=== PATIENT | female | born 1960 | race African-American/Black ===

== ENCOUNTER 2019-11-18 14:38 | Emergency (ER) | payer BC ==
--- OUTSIDE RECORDS SUMMARY | 2019-11-18 14:56 | XMS REPORT | Summary of Care ---
:1960 Author Organization [facility] Address [address] [place] [id number] Care Team Providers Name Role Phone Michelle Lund MD Primary Care Provider Reason for Visit Reason Comments Refill Request Encounter Details Date Type Department Care Team Description 09/06/2019 Refill [facility] and Michelle Ryan MD Refill Request Adult Primary Care- [address] [place] [address] [place] [address] , [address] [place] [address] Allergies No Known Allergiesdocumented as of this encounter (statuses as of 09/07/2019) Medications Medication Sig Dispensed Refills Start Date End Date Status mometasone 50 Use 1 [place] in 1 Bottle 5 09/29/2018 Active mcg/actuation nasal each nostril 2 sprayIndications: (two) times Acute bacterial daily. sinusitis, Allergic sinusitis benazepriL 20 mg Take 1 tablet 90 tablet 1 09/06/2019 Active tabletIndications: by mouth Essential daily. hypertension METOPROLOL TAKE 1 TABLET 90 tablet 1 09/07/2019 Acti ve SUCCINATE XL 50 mg BY MOUTH EVERY 24 hr DAY tabletIndications: Essential hypertension metoprolol Take 1 tablet 30 tablet 5 09/06/2019 09/07/2019 Dis continued succinate XL 50 mg by mouth 24 hr daily. tabletIndications: Essential hypertension documented as of this encounter (statuses as of 09/07/2019) Active Problems Problem Noted Date Abnormal TSH 09/06/2019 Obesity (BMI 30-39.9) 10/28/2018 Essential hypertension 07/28/2018 Prediabetes documented as of this encounter (statuses as of 09/07/2019) Resolved Problems Problem Noted Date Resolved Date Carpal tunnel syndrome 07/28/2018 07/28/2018 documented as of this encounter (statuses as of 09/07/2019) Immunizations Name Administration Dates Next Due Tdap 04/21/2013 documented as of this encounter Social History Tobacco Use Types Packs/Day Years Used Date Never Smoker Smokeless Tobacco: Never Used Alcohol Use Drinks/Week oz/Week Comments Yes Alcohol Habits Answer Date Recorded How often do you have a drink containing alcohol? 2-4 times a month 09/29/2018 How many drinks containing alcohol do you have on a 1 or 2 09/29/2018 typical day when you are drinking? How often do you have six or more drinks on one Never 09/29/2018 occasion? Sex Assigned at Date Recorded Not on file Job Start Date Occupation Industry Not on file Not on file Not on file Travel History Travel Start Travel End No recent travel history available. documented as of this encounter Last Filed Vital Signs Not on filedocumented in this encounter Plan of Treatment Date Type Specialty Care Team Description 10/29/2019 Office Visit Obstetrics & Gynecology Milena Davis PA-C [address] [place] [address] [phone] Health Maintenance Due Date Last Done Comments Zoster Recombinant Vaccine 2010 (SHINGRIX) (1 of 2) Breast Cancer Screening 07/21/2019 07/20/2018, (MAMMOGRAM) 08/19/2017 INFLUENZA VACCINE (Season 01/26/2020 Postpo natalio from 12/21/2019 Ended) (Refused) COLONOSCOPY 02/19/2021 02/19/2018 PAP SMEAR 10/28/2021 10/28/2018, 04/21/2016 DTaP,Tdap,and Td Vaccines (2 04/21/2023 04/21/2013 - Td) HEPATITIS C (HCV) SCREEN Completed 07/28/2018 PNEUMOCOCCAL 0-64 YEARS Aged Out No longe r eligible based COMBINED SERIES on patient's age to complete this to [facility] documented as of this encounter Results Not on filedocumented in this encounter Visit Diagnoses Diagnosis Essential hypertension Unspecified essential hypertension documented in this encounter Insurance Payer Benefit Plan Subscriber ID Effective Dates Phone Address Type / Group BCBS OF [facility] [id number] 2018-Jess [phone] [address] [place] [id number] [place] [address] documented as of this encounter
--- OUTSIDE RECORDS SUMMARY | 2019-11-18 14:56 | XMS REPORT | Summary of Care ---
:1960 Author Organization [facility] - [facility] Address [address] [place] [id number] Care Team Providers Name Role Phone Michelle Lund MD Primary Care Provider Reason for Visit Reason Comments Edema Auth/Cert Status Reason Specialty Diagnoses / Procedures Referred By C ontact Referred To Contact Phlebotomy Diagnoses Essential hypertension - Primary Adc Pob Lab Draw Procedures N-Term Urinalysis Thy Stim Hormone Professional [employer] [address] , [address] [place] [address] Fax: Encounter Details Date Type Department Care Team Description 09/06/2019 Telemedicine Visit [facility] [place], Essential hypertension (Primary Dx); Pediatric and Adult Michelle Altamirano MD Prediabetes; Primary Care- [facility] Obesity (BMI 30-39.9); Prince FERREIRA Routine adult health maintenance; [address], [place] Bilateral lo wer extremity edema , [address] [address] [place], [place] [phone] [address] Allergies No Known Allergiesdocumented as of this encounter (statuses as of 09/06/2019) Medications Medication Sig Dispensed Refills Start Date End Date Status mometasone 50 Use 1 [facility] 1 Bottle 5 09/29/2018 Act osiris mcg/actuation in each nasal nostril 2 sprayIndications: (two) times Acute bacterial daily. sinusitis, Allergic sinusitis metoprolol Take 1 30 tablet 5 09/06/2019 Active succinate XL 50 mg tablet by 24 hr mouth daily. tabletIndications: Essential hypertension benazepriL 20 mg Take 1 90 tablet 1 09/06/2019 Ac tive tabletIndications: tablet by Essential mouth daily. hypertension amlodipine-benazep Take 1 90 capsule 3 01/25/2019 Discontinued ril 5-20 mg per capsule by 0 (Si de effects) capsuleIndications mouth daily. : Essential hypertension documented as of this encounter (statuses as of 09/06/2019) Active Problems Problem Noted Date Obesity (BMI 30-39.9) 10/28/2018 Essential hypertension 07/28/2018 Prediabetes documented as of this encounter (statuses as of 09/06/2019) Resolved Problems Problem Noted Date Resolved Date Carpal tunnel syndrome 07/28/2018 07/28/2018 documented as of this encounter (statuses as of 09/06/2019) Immunizations Name Administration Dates Next Due Tdap [...] Signs Not on filedocumented in this encounter Patient Instructions Patient InstructionsKathy Saunders - 09/06/2019 10:15 AM CDT Patient Education Leg Swelling in Both Legs Swelling of the feet, ankles, and legs is called edema. It is caused by excess fluid that has collected in the tissues. Extra fluid in the body settles in the lowest part because of gravity. This is why the legs and feet are most affected. Some of the causes for edema include: Disease of the heart such as congestive heart failure Standing or sitting for long periods of time Infection of the feet or legs Blood pooling in the veins of your legs (venous insufficiency) when the veins have less elasticity Dilated veins in your lower leg (varicose veins) Stockings or other clothing that is tight on your legs. This will cause blood to pool in your legs because the clothing limits blood flow. Some medicines. These include some hormones such as control pills, some blood pressure medicines such as calcium channel blockers, steroids, and some antidepressants such as MAO inhibitors andtricyclics. Menstrual periods that cause you to retain fluids Many types of kidney disease Liver failureor cirrhosis . Some swelling is normal, but a sudden increase in leg swelling or weight gain can be asign of a dangerous complication of called eclampsia. Poor nutrition Thyroid disease Treatment will depend on what is causing the swelling in your legs. Your healthcare provider may prescribe water pills (diuretics) to get rid of the extra fluid. Home care Follow these guidelines when caring for yourself at home: Don't wear clothing such as stockings that are tight on your legs. Keep your legs up while lying or sitting. If infection, injury, or recent surgery is causing the swelling, stay off your legs as much as possible until symptoms get better. If your healthcare provider says that your leg swelling is caused by venous insufficiency or varicose veins, don't sit or information security risk analyst one place for long periods of time. Take breaks and walk about every few hours. Brisk walking is a good exercise. It helps circulate the blood that has collected in your leg. Talk with your provider about using support stockings to stop daytime leg swelling. If your provider says that heart disease is causing your leg swelling, follow a low-salt diet to stop extra fluid from staying in your body. You may also need medicine. Follow-up care Follow up with your healthcare provider, or as advised. When to seek medical advice Call your healthcare provider right away if any of these occur: Swelling in both legs or ankles that gets worse Swelling of the abdomen Redness, warmth, or swelling in one leg Fever of 100.4F (38C) or higher ,or as directed by your healthcare provider Yellow color to your skin or eyes Rapid, unexplained weight gain Having to sleep upright or use an increased number of pillow Call 911 This is the fastest and safest way to get to the emergency department. The paramedics can also starttreatment on the way to the hospital, if needed. Call 911, or seekmedical attention right away if You have new shortness of breath or chest pain Worsening shortness of breath or chest pain? Claudia last reviewed this educational content on 02/19/201919994290-7994 [employer], [employer]. [address] [place] [address], [place] [address]. All rights reserved. This information is not intended as a substitute for professional medical care. Always follow your healthcare professional's instructions. Patient Education Leg Swelling in Both Legs Swelling of the feet, ankles, and legs is called edema. It is caused by excess fluid that has collected in the tissues. Extra fluid in the body settles in the lowest part because of gravity. This is why the legs and feet are most affected. Some of the causes for edema include: Disease of the heart such as congestive heart failure Standing or sitting for long periods of time Infection of the feet or legs Blood pooling in the veins of your legs (venous insufficiency) when the veins have less elasticity Dilated veins in your lower leg (varicose veins) Stockings or other clothing that is tight on your legs. This will cause blood to pool in your legs because the clothing limits blood flow. Some medicines. These include some hormones such as control pills, some blood pressure medicines such as calcium channel blockers, steroids, and some antidepressants such as MAO inhibitors andtricyclics. Menstrual periods that cause you to retain fluids Many types of kidney disease Liver failureor cirrhosis . Some swelling is normal, but a sudden increase in leg swelling or weight gain can be asign of a dangerous complication of called eclampsia. Poor nutrition Thyroid disease Treatment will depend on what is causing the swelling in your legs. Your healthcare provider may prescribe water pills (diuretics) to get rid of the extra fluid. Home care Follow these guidelines when caring for yourself at home: Don't wear clothing such as stockings that are tight on your legs. Keep your legs up while lying or sitting. If infection, injury, or recent surgery is causing the swelling, stay off your legs as much as possible until symptoms get better. If your healthcare provider says that your leg swelling is caused by venous insufficiency or varicose veins, don't sit or information security risk analyst one place for long periods of time. Take breaks and walk about every few hours. Brisk walking is a good exercise. It helps circulate the blood that has collected in your leg. Talk with your provider about using support stockings to stop daytime leg swelling. If your provider says that heart disease is causing your leg swelling, follow a low-salt diet to stop extra fluid from staying in your body. You may also need medicine. Follow-up care Follow up with your healthcare provider, or as advised. When to seek medical advice Call your healthcare provider right away if any of these occur: Swelling in both legs or ankles that gets worse Swelling of the abdomen Redness, warmth, or swelling in one leg Fever of 100.4F (38C) or higher ,or as directed by your healthcare provider Yellow color to your skin or eyes Rapid, unexplained weight gain Having to sleep upright or use an increased number of pillow Call 911 This is the fastest and safest way to get to the emergency department. The paramedics can also starttreatment on the way to the hospital, if needed. Call 911, or seekmedical attention right away if You have new shortness of breath or chest pain Worsening shortness of breath or chest pain? [employer] last reviewed this educational content on 02/19/201919996769-2195 [employer] [address] [place] [address]. All rights reserved. This information is not intended as a substitute for professional medical care. Always follow your healthcare professional's instructions. documented in this encounter Progress Notes Michelle Lund MD - 09/06/2019 10:15 AM CDT TELEHEALTH NOTE Verbal consent obtained from Patient: Radha Maza due to the COVID-19 pandemic for telehealth services provided below. Communication with patient was conducted via Video Call. Location of Patient: Home Location of Provider: Office Date of Service: 09/06/2019 CC: Chief Complaint Patient presents with Edema HPI Radha Maza is a 59 year old female who participated in a Telehealth visit today for edema and for f/u of HTN, prediabetes, and obesity. Edema or swelling: Location: Bilateral lower extremity edema. Duration: About 4 months. Onset: Gradual-onset. Timing: Constant. Progression: Unchanged. Relieved by: Elevations helps minimally. Worsened by: Prolonged sitting. Ineffective treatments: Compression stockings. Associated symptoms: None. Pertinent negatives: Denies SOB, orthopnea, or PND. Risk factors: Obesity, HTN, takes a CCB (amlodipine). Past work-up: None. HTN follow-up: Medication compliance: Good. Dietary compliance: Improving the past few weeks. Exercise frequency: She exercises occasionally. Blood pressure readings: <130/<80. Associated symptoms: None. Denies cp or SOB. Cardiovascular screening (ex. EKG, stress test) in the past 3 years?: Yes. Prediabetes follow-up: Last Two A1C Results ([facility]/LC, POCT, [facility]) Recent Labs 01/25/19 0831 HGBA1C 5.9 On metformin?: No. Dietary compliance: See above. Exercise frequency: See above. Associated symptoms: None. Denies polyuria, polydipsia, blurred vision, or numbness/tingling of extremities. No Known Allergies Current Outpatient Medications on File Prior to Visit Medication Sig Dispense Refill mometasone 50 mcg/actuation nasal spray Use 1 [facility] in each nostril 2 (two) times daily. 1 Bottle 5 No current facility-administered medications on file prior to visit. Past Medical History: Diagnosis Date Allergic rhinitis Essential hypertension 07/28/2018 History of sinusitis Prediabetes Past Surgical History: Procedure Laterality Date COLONOSCOPY 02/2018 Dr. Ulloa, + polyps, f/u in 3 years ENDOSCOPIC CARPAL TUNNEL RELEASE ENDOSCOPIC CARPAL TUNNEL RELEASE TUBAL LIGATION Family History Problem Relation Age of Onset Hypertension Mother Colon Cancer Mother 60 High cholesterol Father Hypertension Father Hypertension Sister Hypertension Brother Psychiatry Brother Colon Cancer Maternal Grandmother 60 Psychiatry Brother Hypertension Brother Hypertension Sister Social History Socioeconomic History Marital status: Spouse name: Not on file Number of children: Not on file Years of education: Not on file Highest education level: Not on file Occupational History Not on file Social Needs Financial resource strain: Not on file Food insecurity: Worry: Not on file Inability: Not on file Transportation needs: Medical: Not on file Non-medical: Not on file Tobacco Use Smoking status: Never Smoker Smokeless tobacco: Never Used Substance and Sexual Activity Alcohol use: Yes Frequency: 2-4 times a month Drinks per session: 1 or 2 Binge frequency: Never Drug use: No Sexual activity: Yes Partners: Male Lifestyle Physical activity: Days per week: Not on file Minutes per session: Not on file Stress: Not on file Relationships Social connections: Talks on phone: Not on file Gets together: Not on file Attends baptist service: Not on file Active member of club or organization: Not on file Attends meetings of clubs or organizations: Not on file Relationship status: Not on file Intimate partner violence: Fear of current or ex partner: Not on file Emotionally abused: Not on file Physically abused: Not on file Forced sexual activity: Not on file Other Topics Concern Not on file Social History Narrative Single. 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 Denies domestic abuse. Review of Systems Constitutional: Negative. HENT: Negative. Eyes: Negative. Respiratory: Negative. Cardiovascular: Positive for leg swelling. Gastrointestinal: Negative. Genitourinary: Negative. Musculoskeletal: Negative. Skin: Negative. Neurological: Negative. Psychiatric/Behavioral: Negative. Endocrine: Endocrine negative Vital signs Level of pain 0. Physical Exam Constitutional: She is oriented to person, place, and time. She appears well- developed and well-nourished. No distress. Pulmonary/Chest: Effort normal. No stridor. No respiratory distress. No audible adventitious breath sounds Neurological: She is alert and oriented to person, place, and time. Skin: No rash noted. No pallor. Psychiatric: She has a normal mood and affect. Her speech is normal and behavior is normal. Judgmentand thought content normal. Cognition and memory are normal. LABS: CBC CMP WBC (10*3/L) Date Value 01/25/2019 4.63 NA (mmol/L) Date Value 01/25/2019 144 RBC (10*6/L) Date Value 01/25/2019 4.58 K (mmol/L) Date Value 01/25/2019 4.8 PLT (10*3/L) Date Value 01/25/2019 345 CALCIUM (mg/dL) Date Value 01/25/2019 9.7 HGB (g/dL) Date Value 01/25/2019 12.8 CL (mmol/L) Date Value 01/25/2019 108 HCT (%) Date Value 01/25/2019 39.6 BUN (mg/dL) Date Value 01/25/2019 17 LIPID PANEL CREATININE (mg/dL) Date Value 01/25/2019 0.84 CHOL (mg/dL) Date Value 07/28/2018 138 GLUCOSE (mg/dL) Date Value 01/25/2019 96 LDL CHOL (mg/dL) Date Value 07/28/2018 73 CO2 TOTAL (mmol/L) Date Value 01/25/2019 29 HDL (mg/dL) Date Value 07/28/2018 56 ALBUMIN Date Value Ref Range Status 01/25/2019 4.2 3.5 - 5.0 g/dL Final TRIG (mg/dL) Date Value 07/28/2018 46 T PROTEIN Date Value Ref Range Status 01/25/2019 7.4 6.3 - 8.2 g/dL Final TSH TOTAL BILI Date Value Ref Range Status 01/25/2019 0.4 0.1 - 1.1 mg/dL Final TSH (mIU/L) Date Value 07/28/2018 0.50 No components found for: BILIUNCOM No results found for: BILICONJ ALT(SGPT) Date Value Ref Range Status 01/25/2019 25 9 - 51 U/L Final AST(SGOT) Date Value Ref Range Status 01/25/2019 27 13 - 40 U/L Final ALK PHOS Date Value Ref Range Status 01/25/2019 106 34 - 122 U/L Final ASSESSMENT/PLAN Diagnoses and all orders for this visit: Essential hypertension I will discontinue the amlodipine component of her medication given it is the likely reason for her edema. I prescribed benazepril and metoprolol as noted. A low sodium diet/DASH diet was recommended. She should also exercise regularly. The patient was instructed to self monitor her blood pressureonce daily varying the times when it is checked and to bring the record of readings to each office visit. The patient should follow-up sooner if the blood pressure is trending >/=130/80. Labs as noted below. - metoprolol succinate XL 50 mg 24 hr tablet; Take 1 tablet by mouth daily. - benazepriL 20 mg tablet; Take 1 tablet by mouth daily. Prediabetes Carb-controlled diet. Exercise regularly and work on weight loss. Consider self glucose monitoring. Consider metformin to help prevent progression to overt diabetes. Labs as noted below including an A1c. Obesity (BMI 30-39.9) Nutritional/Exercise Counseling and Education: - Counseled on diet, exercise, weight control and goals - Follow-Up plan: -Follow up visit for weight management at next clinic visit Routine adult health maintenance (annual routine labs) - CBC WITH DIFF; Standing - COMP. METABOLIC PANEL (99870); Standing - GLYCOSYLATED HEMOGLOBIN (A1C); Standing - LIPID PANEL (61390)(TOTAL CHOLESTEROL, TRIGLYCERIDES, HDL); Standing - THYROID STIMULATING HORMONE; Standing - URINALYSIS; Standing Bilateral lower extremity edema The patient was counseled to elevate the legs whenever possible, get enough hours of recumbent sleep, follow a low sodium diet, and consider compression hose. Check labs as noted above and a BNP checkis warranted. Venous duplex of the lower extremities can be considered along with a Vascular surgery consultation if her symptoms persist. - N-TERMINAL PRO-BNP; Standing Plan of care, desired health behaviors, goals, Ddx, and any prescribed medications were discussed with the patient. Education resources and self- management tools were provided in the After Visit Summary (AVS) which is accessible through [employer]. A total of 25 minutes was spent on the Video Call, chart review, and coordination of care with specialists. Patient/guardian/family verbalized understanding and agrees to the plan of care. Barriers to care: None. Ability to manage care: Good. Advanced care planning (living will) information was not given/offered to the patient to review for discussion at a future visit. If applicable, the [employer] database was accessed to review any controlled substance prescription claims data. If the patient is taking prescribed medications, the [facility] prescription claims data in [employer] was reviewed to assess patient compliance with the medication treatment plan. COVID-19 precautions given including frequent handwashing, social distancing, cleaning and disinfecting, indications for testing, etc. Follow-up: Return in about 6 months (around 03/08/2020) for routine follow-up of HTN, prediabetes, and obesity. Return for routine care as scheduled or previously advised. Scribe Kathy Machado , leida scribing for, and in the presence of, Michelle Lund MD who performed the services described here-in. Kathy Saunders, September 06, 2019, 8:56 AM Physician Attestation I, Michelle Lund MD, personally performed the services described in this documentation , as scribed by, Kathy Saunders in my presence and it is both accurate and complete. Michelle Lund MD September 06, 2019, 8:56 AM documented in this encounter Plan of Treatment Date Type Specialty Care Team Description 10/29/2019 Office Visit Obstetrics & Gynecology Milena Davis PA-C [address] [phone] Name Type Priority Associated Diagnoses Order S chedule CBC WITH DIFF LAB Routine Routine adult health 1 Occu rrences starting maintenance 09/06/2019 unti l 03/08/2020 COMP. METABOLIC PANEL LAB Routine Routine adult healt h 1 Occurrences starting (49100) maintenance 09/06/2019 unti l 03/08/2020 GLYCOSYLATED HEMOGLOBIN LAB Routine Routine adult hea lth 1 Occurrences starting (A1C) maintenance 09/06/2019 unti l 03/08/2020 LIPID PANEL (79440)(TOTAL LAB Routine Routine adult h ealth 1 Occurrences starting CHOLESTEROL, maintenance 09/06/2019 unti l TRIGLYCERIDES, HDL) 03/08/20 20 THYROID STIMULATING LAB Routine Routine adult health 1 Occurrences starting HORMONE maintenance 09/06/2019 unti l 03/08/2020 URINALYSIS LAB Routine Routine adult health 1 Occur rences starting maintenance 09/06/2019 unti l 03/08/2020 N-TERMINAL PRO-BNP LAB Routine Essential hyp ertension 1 Occurrences starting Bilateral lower 09/06/2019 u ntil extremity edema 03/08/2020 Health Maintenance Due Date Last Done Comments [...] on patient's age to complete this to pic documented as of this encounter Results Not on filedocumented in this encounter Visit Diagnoses Diagnosis Essential hypertension - Primary Unspecified essential hypertension Prediabetes Other abnormal glucose Obesity (BMI 30-39.9) Obesity, unspecified Routine adult health maintenance Routine general medical examination at a health care facility Bilateral lower extremity edema Edema documented in this encounter Insurance Payer Benefit Plan Subscriber ID Effective Dates Phone Address Type / Group [facility] OF [facility] [id number] 2018-Jess [phone] [address] PPO/POS [place] t [id number] [place] [address] documented as of this encounter
--- OUTSIDE RECORDS SUMMARY | 2019-11-18 14:56 | XMS REPORT | Summary of Care ---
:1960 Author Organization [facility] - [facility] Address [address] [place] [address] Care Team Providers Name Role Phone Michelle Lund MD Primary Care Provider Encounter Details Date Type Department Care Team Description 10/29/2019 Patient Secure [facility] Pediatric Chacha Lund, and Adult Primary Care- [address] [place] [address], [address] [address] [place] [address] [phone] Allergies No Known Allergiesdocumented as of this encounter (statuses as of 10/29/2019) Medications Medication Sig Dispensed Refills Start Date End Date Status mometasone 50 Use 1 [place] in 1 Bottle 5 09/29/2018 Active mcg/actuation nasal each nostril 2 sprayIndications: (two) times daily. Acute bacterial sinusitis, Allergic sinusitis amLODIPine-benazepriL Take 1 capsule by 0 Active 5-40 mg per capsule mouth daily. documented as of this encounter (statuses as of 10/29/2019) Active Problems Problem Noted Date Abnormal TSH 09/06/2019 Obesity (BMI 30-39.9) 10/28/2018 Essential hypertension 07/28/2018 Prediabetes documented as of this encounter (statuses as of 10/29/2019) Resolved Problems Problem Noted Date Resolved Date Carpal tunnel syndrome 07/28/2018 07/28/2018 documented as of this encounter (statuses as of 10/29/2019) Immunizations Name Administration Dates Next Due TDAP 04/21/2013 documented as of this encounter Social [...] Treatment Date Type Specialty Care Team Description 11/30/2019 Office Visit Obstetrics & Gynecology Milena Davis PA-C [address] [place] [phone] Health Maintenance Due Date Last Done Comments Depression Screening 1972 Zoster Recombinant Vaccine 2010 (SHINGRIX) (1 of 2) Breast Cancer Screening 07/21/2019 07/20/2018, (MAMMOGRAM) 08/19/2017 INFLUENZA VACCINE (#1) 2020 Postponed from 12/21/2019 (Refused) COLONOSCOPY 02/19/2021 02/19/2018 PAP SMEAR 10/28/2021 10/28/2018, 04/21/2016 DTaP,Tdap,and Td Vaccines (2 04/21/2023 04/21/2013 - Td) HEPATITIS C (HCV) SCREEN Completed 07/28/2018 PNEUMOCOCCAL 0-64 YEARS Aged Out No longe r eligible based COMBINED SERIES on patient's age to complete this to pic documented as of this encounter Results Not on filedocumented in this encounter Insurance Payer Benefit Plan Subscriber ID Effective Dates Phone Address Type / Group [employer] [place] [id number] 2018-Jess [phone] [address] PPO/POS [place] t [id number] [place] [address] documented as of this encounter
--- OUTSIDE RECORDS SUMMARY | 2019-11-18 14:56 | XMS REPORT | Summary of Care ---
:1960 Author Organization [facility] Address [address] [place] [address] Care Team Providers Name Role Phone Michelle Lund MD Primary Care Provider Reason for Visit Reason Comments Exposure dizziness, fatigue, and head ache Encounter Details Date Type Department Care Team Description 11/18/2019 Laboratory Only [facility] Family Kacey Merino, DRYWALL HANGER FRAMER [address] [place] [address] [address] Suspected Covid-19 [facility], Adc Fam Pob I Virus Infection [address] [place] [address] (Primary D x) [place] [address] Allergies No Known Allergiesdocumented as of this encounter (statuses as of 11/18/2019) Medications Medication Sig Dispensed Refills Start Date End Date Status mometasone 50 Use 1 [place] in 1 Bottle 5 09/29/2018 Active mcg/actuation nasal each nostril 2 sprayIndications: (two) times daily. Acute bacterial sinusitis, Allergic sinusitis amLODIPine-benazepriL Take 1 capsule by 0 Active 5-40 mg per capsule mouth daily. documented as of this encounter (statuses as of 11/18/2019) Active Problems Problem Noted Date Abnormal TSH 09/06/2019 Obesity (BMI 30-39.9) 10/28/2018 Essential hypertension 07/28/2018 Prediabetes documented as of this encounter (statuses as of 11/18/2019) Resolved Problems Problem Noted Date Resolved Date Carpal tunnel syndrome 07/28/2018 07/28/2018 documented as of this encounter (statuses as of 11/18/2019) Immunizations Name Administration Dates Next Due TDAP [...] Travel End No recent travel history available. COVID-19 Exposure Response Date Recorded In the last month, have you been in contact with No / Unsure 11/18/2019 11:46 AM CDT someone who was confirmed or suspected to have Coronavirus / COVID-19? documented as of this encounter Last Filed Vital Signs Not on filedocumented in this encounter Plan of Treatment Date Type Specialty Care Team Description 12/29/2019 Office Visit Obstetrics & Gynecology Milena Davis PA-C [address] [place] [address] [phone] Name Type Priority Associated Diagnoses Order S chedule COVID-19 (PCR MOLECULAR LAB Routine Suspected Covid-1 9 Virus Expected: 11/18/2019, TESTING) Infection Expires: 2020 Health Maintenance Due Date Last Done Comments [...] filedocumented in this encounter Visit Diagnoses Diagnosis Suspected Covid-19 Virus Infection - Malia de la torre documented in this encounter Additional Health Concerns Infection Onset Date Last Indicated Resolved Time COVID-19 Rule Out 11/18/2019 11/18/2019 documented as of this encounter Insurance Payer Benefit Plan Subscriber ID Effective Dates Phone Address Type / Group BCBS OF [facility] [id number] 2018-Jess [phone] [address] PPO/POS [place] t 7 [id number] [place] [address] documented as of this encounter
--- OUTSIDE RECORDS SUMMARY | 2019-11-18 14:56 | XMS REPORT | Summary of Care ---
:1960 Author Organization [facility] Address [address] [place] [address] Care Team Providers Name Role Phone Michelle Lund MD Primary Care Provider Encounter Details Date Type Department Care Team Description 10/20/2019 Patient Secure [facility] Pediatric Chacha Lund, and Adult Primary Care- [address] [place], [place] [address], [address] [address] [place] [address] [phone] Allergies No Known Allergiesdocumented as of this encounter (statuses as of 10/21/2019) Medications Medication Sig Dispensed Refills Start Date End Date Status mometasone 50 Use 1 [place] 1 Bottle 5 09/29/2018 Act osiris mcg/actuation in each nasal nostril 2 sprayIndications: (two) times Acute bacterial daily. sinusitis, Allergic sinusitis amLODIPine-benazep Take 1 0 A ctive riL 5-40 mg per capsule by capsule mouth daily. benazepriL 20 mg Take 1 tablet 90 tablet 1 09/06/2019 10/21/19 2 Discontinued tabletIndications: by mouth 0 ( Side effects) Essential daily. hypertension METOPROLOL TAKE 1 TABLET 90 tablet 1 09/07/2019 Disc ontinued SUCCINATE XL 50 mg BY MOUTH 0 ( Side effects) 24 hr EVERY DAY tabletIndications: Essential hypertension documented as of this encounter (statuses as of 10/21/2019) Active Problems Problem Noted Date Abnormal TSH 09/06/2019 Obesity (BMI 30-39.9) 10/28/2018 Essential hypertension 07/28/2018 Prediabetes documented as of this encounter (statuses as of 10/21/2019) Resolved Problems Problem Noted Date Resolved Date Carpal tunnel syndrome 07/28/2018 07/28/2018 documented as of this encounter (statuses as of 10/21/2019) Immunizations Name Administration Dates Next Due TDAP [...] Visit Obstetrics & Gynecology Milena Davis PA-C [address] [place] [address] [phone] Health Maintenance Due Date Last Done [...] Type / Group BCBS OF [employer] [id number] 2018-Jess [phone] [address] PPO/POS [place] t 7 [id number] [place] [address] documented as of this encounter
--- OUTSIDE RECORDS SUMMARY | 2019-11-18 14:56 | XMS REPORT | Continuity of Care Document ---
:1960 Author Organization [facility] t Address [address] [place] [address] Care Team Providers Name Role Phone Lab, Fam Pob I Attending Clinician Unavailable 2, Lab Attending Clinician Unavailable Kevon ALVAREZ, Evelia Attending Clinician Pob, Lab Main Attending Clinician Unavailable Problems Condition Condition Condition Status Onset Resolution Last Treating Co mments Source Name Details Category Date Date Treatment Clinician Date Hypertensi Hypertensi Problem Active [facility] Prediabete Prediabete Problem Active C [facility] s [facility] History of History of Problem Active C HI St thrombocyt thrombocyt Yelena kes - osis osis [facility] Hematuria, Hematuria, Problem Active C HI St unspecifie unspecifie Yelena kes - d type d type [facility] Encounter Encounter Diagnosis Active C HI St for for [facility] - screening screening [place] mammogram mammogram l for for [facility] malignant malignant ent neoplasm neoplasm Clinic s of breast of breast Allergies, Adverse Reactions, Alerts This patient has no known allergies or adverse reactions. Medications Ordered Filled Start Stop Current Ordering Indication Dosage Frequency Signature Comments Components Source Medication Medication Date Date Medication? Clinician (SIG) Name Name Vitamin D Vitamin D Yes Rosanna [address] [facility] Vitamin C Vitamin C Yes Rosanna not [facility] defined [facility] Evening Evening Yes Rosanna not [facility] defined [facility] Oil Oil [facility] Clinics Amlodipine Amlodipine Yes Rosanna [address] [facility] Mill[facility] - pril HCl pril HCl [facility] Procedures This patient has no known procedures. Encounters Start End Encounter Admission Attending Care Care Encounter Source Date/Time Date/Time Type Type Clinicians Facility Department ID 2019-11-18 2019-11-18 Laboratory Lab, [facility] [id number] 11:45:26 12:05:26 Only Fam Tommie [facility] [id number] [place] [id number] Professio [phone] [place] [address] Office Building One 2019-11-02 2019-11-02 Driller Operator 2, [facility] Lab [facility] [id number] 09:49:38 10:04:38 Visit [place] [id number] [place] [id number] Professio [phone] [address] 2019-10-29 2019-10-29 Patient Kevon, [facility] [id number] 00:00:00 00:00:00 Secure Msg Wondiful A [place] [id number] [place] [id number] Professio [phone] [address] 2019-10-20 2019-10-20 Patient Kevon [facility] [id number] 00:00:00 00:00:00 Secure Msg Wondiful A [place] [id number] [place] [id number] Professio [phone] [address] 2019-09-06 2019-09-06 Driller Operator Tommie, [facility] [id number] 13:05:19 13:20:19 Visit Lab Main [place] [id number] [place] [id number] Professio [phone] [address] 2019-09-06 2019-09-06 Case Kevon [facility] [id number] 00:00:00 00:00:00 Management Wondiful A [place] [id number] [place] [id number] Professio [phone] n[address] [place] [address] 2019-09-06 2019-09-06 VINICIUS Najera [id number] 00:00:00 00:00:00 Michelle Morrison [id number] [place] [id number] Professio [phone] [address] 2018-07-13 2018-07-13 [facility] [id number] 13:23:00 13:23:00 [facility] Medicine Outpati ent Clinics 2017-08-22 2017-08-22 [facility] [id number] 08:30:00 08:30:00 [facility] Medicine Outpati ent Clinics 2017-08-05 2017-08-05 [facility] [id number] 15:15:00 15:15:00 [facility] Medicine Outpati ent Clinics 2017-07-31 2017-07-31 [facility] [id number] 11:31:00 11:31:00 [facility] Outpati ent Clinics 2017-07-24 2017-07-24 [facility] [id number] 09:30:00 09:30:00 [facility] Results This patient has no known results.
--- OUTSIDE RECORDS SUMMARY | 2019-11-18 14:56 | XMS REPORT | Summary of Care ---
:1960 Author Organization [facility] Address [address] [place] [address] Care Team Providers Name Role Phone Michelle Lund MD Primary Care Provider Reason for Visit Reason Comments Orders f/u thyroid labs Encounter Details Date Type Department Care Team Description 09/06/2019 Case Management [facility] Michelle Lund Orders (f/u thyroid Pediatric and Adult MD Evelia labs) Primary Care- [address] [place] [address] , [address] [address] [place] [address] Allergies No Known Allergiesdocumented as of this encounter (statuses as of 09/06/2019) Medications Medication Sig Dispensed Refills Start Date End Date Status mometasone 50 Use 1 [place] in 1 Bottle 5 09/29/2018 Active mcg/actuation nasal each nostril 2 sprayIndications: Acute (two) times bacterial sinusitis, daily. Allergic sinusitis metoprolol succinate XL Take 1 tablet by 30 tablet 5 0 Active 50 mg 24 hr mouth daily. tabletIndications: Essential hypertension benazepriL 20 mg Take 1 tablet by 90 tablet 1 09/06/2019 Active tabletIndications: mouth daily. Essential hypertension documented as of this encounter (statuses as of 09/06/2019) Active Problems Problem Noted Date Abnormal TSH [...] Visit Obstetrics & Gynecology Milena Davis PA-C [address] [place] [address] 15-4112 Name Type Priority Associated Diagnoses Order S chedule THYROID STIMULATING HORMONE LAB Routine Abno rmal TSH Expected: 10/07/2019, Abnormal thyroid Expires: function test FREE T4 LAB Routine Abnormal TSH Expected: 10/07/2019, Abnormal thyroid Expires: function test FREE T3 LAB Routine Abnormal TSH Expected: 10/07/2019, Abnormal thyroid Expires: function test THYROGLOBULIN AB LAB Routine Abnormal TSH Expected: 10/07/2019, Abnormal thyroid Expires: function test THYROID PEROXIDASE (TPO) LAB Routine Abnorma l TSH Expected: 10/07/2019, AB Abnormal thyroid Expires: function test TSH RECEPTOR ANTIBODY LAB Routine Abnormal T SH Expected: 10/07/2019, (TRAB) Abnormal thyroid Expires: function test Health Maintenance Due Date Last Done Comments [...] on patient's age to complete this to [facility] documented as of this encounter Results Not on filedocumented in this encounter Visit Diagnoses Diagnosis Abnormal TSH - Primary Other abnormal clinical finding Abnormal thyroid function test Nonspecific abnormal results of thyroid function study documented in this encounter Insurance Payer Benefit Plan Subscriber ID Effective Dates Phone Address Type / Group BCBS OF [facility] [id number] 2018-Jess [phone] [address] PPO/POS [place] t 7 [id number] [place] [address] documented as of this encounter
--- OUTSIDE RECORDS SUMMARY | 2019-11-18 14:56 | XMS REPORT | Summary of Care ---
:1960 Author Organization [facility] Address [address] [place] [address] Care Team Providers Name Role Phone Michelle Lund MD Primary Care Provider Reason for Visit Reason Comments LAB WORK Auth/Cert Status Reason Specialty Diagnoses / Procedures Referred By C ontact Referred To Contact Phlebotomy Diagnoses Essential hypertension - Primary Adc Pob Lab Draw Procedures N-Term Urinalysis Thy Stim Hormone Professional Office [address] , [address] [place] [address] Fax: Encounter Details Date Type Department Care Team Description 09/06/2019 In Flight Refueling Operator Visit [facility] Kirt Lund MD [address] [place] [address] [place] [address] Routine adult health maintenance; Professional Office Pob, Adc Lab Main Essential hypertension; Building Phlebotomy Bilatera l lower extremity edema Lab Professional Office [address] , [address] [place] [address] Allergies No Known Allergiesdocumented as of this encounter (statuses as of 09/06/2019) Medications Medication Sig Dispensed Refills Start Date End Date Status mometasone 50 Use 1 [place] in 1 Bottle 5 09/29/2018 Active mcg/actuation [...] Visit Obstetrics & Gynecology Milena Davis PA-C [address] [place] [address] 15-4112 Name Type Priority Associated Diagnoses Date/Ti me CBC WITH DIFF LAB Routine Routine adult health 2019 1:22 PM maintenance CDT COMP. METABOLIC PANEL LAB Routine Routine adult healt h 09/06/2019 1:22 PM (65242) maintenance CDT GLYCOSYLATED HEMOGLOBIN LAB Routine Routine adult hea lth 09/06/2019 1:22 PM (A1C) maintenance CDT LIPID PANEL (39221)(TOTAL LAB Routine Routine adult h ealth 09/06/2019 1:22 PM CHOLESTEROL, maintenance CDT TRIGLYCERIDES, HDL) THYROID STIMULATING LAB Routine Routine adult health 09/06/2019 1:22 PM HORMONE maintenance CDT URINALYSIS LAB Routine Routine adult health 020 1:33 PM maintenance CDT N-TERMINAL PRO-BNP LAB Routine Essential hyp ertension 09/06/2019 1:22 PM Bilateral lower CDT extremity edema CBC WITH DIFFERENTIAL LAB Routine Routine adult healt h 09/06/2019 1:22 PM maintenance CDT Health Maintenance Due Date Last Done Comments [...] on patient's age to complete this to [facility] documented as of this encounter Results Not on filedocumented in this encounter Visit Diagnoses Diagnosis Routine adult health maintenance Routine general medical examination at a health care facility Essential hypertension Unspecified essential hypertension Bilateral lower extremity edema Edema documented in this encounter Insurance Payer Benefit Plan Subscriber ID Effective Dates Phone Address Type / Group [facility] [id number] 2018-Jess [phone] [address] PPO/POS [place] t 7 [id number] [place] [address] documented as of this encounter
--- OUTSIDE RECORDS SUMMARY | 2019-11-18 14:56 | XMS REPORT | Summary of Care ---
:1960 Author Organization [facility] Address [address] [place] [address] Care Team Providers Name Role Phone Michelle Lund MD Primary Care Provider Reason for Visit Reason Comments LAB WORK Auth/Cert Status Reason Specialty Diagnoses / Procedures Referred By C ontact Referred To Contact Phlebotomy Diagnoses Essential hypertension - Primary Adc Pob Lab Draw Procedures N-Term Urinalysis Thy Stim Hormone Professional Office [address] , [address] [place] [address] Fax: Encounter Details Date Type Department Care Team Description 09/06/2019 Rink Rat Visit [facility] Kirt Lund MD [address] [place] [address] [place] [address] Routine adult health maintenance; Professional Office Pob, Adc Lab Main Essential hypertension; Building Phlebotomy Bilatera l lower extremity edema Lab Professional Office [address] , [address] [place] [address] Allergies No Known Allergiesdocumented as of this encounter (statuses as of 09/06/2019) Medications Medication Sig Dispensed Refills Start Date End Date Status mometasone 50 Use 1 [place] in 1 Bottle 5 09/29/2018 Active mcg/actuation [...] Visit Obstetrics & Gynecology Milena Davis PA-C [address] [place] [address] 15-4112 Name Type Priority Associated Diagnoses Date/Ti me CBC WITH DIFF LAB Routine Routine adult health 2019 1:22 PM maintenance CDT COMP. METABOLIC PANEL LAB Routine Routine adult healt h 09/06/2019 1:22 PM (25308) maintenance CDT GLYCOSYLATED HEMOGLOBIN LAB Routine Routine adult hea lth 09/06/2019 1:22 PM (A1C) maintenance CDT LIPID PANEL (32159)(TOTAL LAB Routine Routine adult h ealth 09/06/2019 1:22 PM CHOLESTEROL, maintenance CDT TRIGLYCERIDES, HDL) THYROID STIMULATING LAB Routine Routine adult health 09/06/2019 1:22 PM HORMONE maintenance CDT N-TERMINAL PRO-BNP LAB Routine Essential [...] on patient's age to complete this to [facility] documented as of this encounter Results Not on filedocumented in this encounter Visit Diagnoses Diagnosis Routine adult health maintenance Routine general medical examination at a health care facility Essential hypertension Unspecified essential hypertension Bilateral lower extremity edema Edema documented in this encounter Insurance Payer Benefit Plan Subscriber ID Effective Dates Phone Address Type / Group BCBS [facility] [id number] 2018-Jess [phone] [address] PPO/POS [place] t 7 [id number] [place] [address] documented as of this encounter
--- OUTSIDE RECORDS SUMMARY | 2019-11-18 14:56 | XMS REPORT | Summary of Care ---
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 Kirt Lund MD [address] [place] [address] [place] [address] Abnormal TSH; Professional Office 2, Adc Lab Abnormal thyroid function test Building Phlebotomy Lab Professional Office Building [address] [facility] , [address] [place] [address] Allergies No Known Allergiesdocumented as of this encounter (statuses as of 11/02/2019) Medications Medication Sig Dispensed Refills Start Date End Date Status mometasone 50 Use 1 [place] in 1 Bottle 5 09/29/2018 Active mcg/actuation nasal each nostril 2 sprayIndications: (two) times daily. Acute bacterial sinusitis, Allergic sinusitis amLODIPine-benazepriL Take 1 capsule by 0 Active 5-40 mg per capsule mouth daily. documented as of this encounter (statuses as of 11/02/2019) Active Problems Problem Noted Date Abnormal TSH 09/06/2019 Obesity (BMI 30-39.9) 10/28/2018 Essential hypertension 07/28/2018 Prediabetes documented as of this encounter (statuses as of 11/02/2019) Resolved Problems Problem Noted Date Resolved Date Carpal tunnel syndrome 07/28/2018 07/28/2018 documented as of this encounter (statuses as of 11/02/2019) Immunizations Name Administration Dates Next Due TDAP [...] Visit Obstetrics & Gynecology Milena Davis PA-C [address] [place] [address] 15-4112 Health Maintenance Due Date Last Done [...] on patient's age to complete this to [facility] documented as of this encounter Results Not on filedocumented in this encounter Visit Diagnoses Diagnosis Abnormal TSH Other abnormal clinical finding Abnormal thyroid function test Nonspecific abnormal results of thyroid function study documented in this encounter Insurance Payer Benefit Plan Subscriber ID Effective Dates Phone Address Type / Group BCBS OF [facility] [id number] 2018-Jess [phone] [address] PPO/POS [facility] 7 [id number] [place] [address] documented as of this encounter
--- OUTSIDE RECORDS SUMMARY | 2019-11-18 14:56 | XMS REPORT | Summary of Care ---
:1960 Author Organization [facility] Address [address] [place] [address] Care Team Providers Name Role Phone Michelle Lund MD Primary Care Provider Encounter Details Date Type Department Care Team Description 09/06/2019 Orders Only [facility] Doctor Unassigned, No [address] [facility] [place] [address] [address] [place] [address] Allergies No Known Allergiesdocumented as of this encounter (statuses as of 09/06/2019) Medications Medication Sig Dispensed Refills Start Date End Date Status mometasone 50 Use 1 [place] in 1 Bottle 5 09/29/2018 Active mcg/actuation [...] Visit Obstetrics & Gynecology Milena Davis PA-C [address] [place] [address] 15-[address]12 Health Maintenance Due Date Last Done [...] on patient's age to complete this to [facility] documented as of this encounter Procedures Procedure Name Priority Date/Time Associated Diagnosis Comme nts ASSIGNMENT OF BENEFITS Routine 09/06/2019 1:03 PM CDT documented in this encounter Results Not on filedocumented in this encounter Insurance Payer Benefit Plan Subscriber ID Effective Dates Phone Address Type / Group BCBS OF [facility] [id number] 2018-Jess [phone] [address] PPO/POS [place] t 7 [id number] [place] [address] documented as of this encounter
[2019-11-18 15:57] LABS: Absolute Lymphocytes (CBC) 1.4 K/uL (0.7-4.9); Basophils % 0.4 % (0-1.3); Hematocrit 40.9 % (36.0-45.0); Lymphocytes % 29.3 % (15.3-44.8); MPV 8.6 fL (7.6-11.3); RBC Red Blood Cell Count 4.83 M/uL (3.86-4.86)
[2019-11-18 15:58] LABS: Protime INR 1.03
--- NOTE | 2019-11-18 15:58 | RAD REPORT ---
EXAM DESCRIPTION: RAD - Chest Single View - 11/18/2019 3:51 pm CLINICAL HISTORY: HTN poorly controlled Chest pain. COMPARISON: CHEST SINGLE VIEW dated 12/21/2014 FINDINGS: Portable technique limits examination quality. The lungs are grossly clear. The heart is normal in size. No displaced fractures. IMPRESSION: No acute intrathoracic process suspected.
[2019-11-18 16:17] LABS: ALT/SGPT 31 U/L (12-78); AST/SGOT 19 U/L (15-37); Albumin 3.7 g/dL (3.4-5.0); Alkaline Phosphatase 93 U/L (45-117); BUN Blood Urea Nitrogen 11 mg/dL (7-18); Bicarbonate 26 mmol/L (21-32); Bilirubin Direct 0.2 mg/dL (0-0.2); Bilirubin Total 0.6 mg/dL (0.2-1.0); Glucose Level 95 mg/dL (74-106); Magnesium 2.4 mg/dL (1.8-2.4); NT PRO-BNP 31 pg/mL (<125); Potassium 3.8 mmol/L (3.5-5.1); Protein, Total 8.1 g/dL (6.4-8.2); Sodium Level 142 mmol/L (136-145); Troponin (Emerg Dept Use Only) < 0.02 ng/mL (0.0-0.045)
--- NOTE | 2019-11-18 17:46 | ER ---
Nurse's Notes [facility] Name: Alyssa Maza Age: 59 yrs Sex: Female : 1960 Arrival Date: 11/18/2019 Time: 14:40 Bed 13 Private MD: Diagnosis: Hypertensive heart disease Presentation: 11/17 14:47 Chief complaint: Patient states: was getting some high BP readings at home, today it iw was 149/100, earlier this week she was outside walking and felt light headed, fingers on left hand are hurting and has a sensation in left thigh, denies headache, blurry vision, takes BP medicine regularly , amlodipine and benazepril. Ebola Screen: Patient negative for fever greater than or equal to 101.5 degrees Fahrenheit, and additional compatible Ebola Virus Disease symptoms Patient denies exposure to infectious person. Patient denies travel to an Ebola-affected area in the 21 days before illness onset. No symptoms or risks identified at this time. Initial Sepsis Screen: Does the patient meet any 2 criteria? No. Patient's initial sepsis screen is negative. Does the patient have a suspected source of infection? No. Patient's initial sepsis screen is negative. Risk Assessment: Do you want to hurt yourself or someone else? Patient reports no desire to harm self or others. Onset of symptoms was 2019. 14:47 Method Of Arrival: Ambulatory iw 14:47 Acuity: CARITO 3 iw 18:16 Coronavirus screen: At this time, the client does not indicate any symptoms associated [facility] with coronavirus-19. Historical: - Allergies: 14:51 No Known Allergies; iw - Home Meds: 14:51 amlodipine oral once daily [Active]; benazepril oral oral [Active]; iw - PMHx: 14:51 Hypertension; iw - PSHx: 14:51 Carpal Tunnel Repair; Tubal ligation; iw - Immunization history:: Adult Immunizations. - Social history:: Smoking status: Patient denies any tobacco usage or history of. Screenin:15 Abuse screen: Denies threats or abuse. Denies injuries from another. Nutritional [facility] screening: No deficits noted. Tuberculosis screening: No symptoms or risk factors identified. Fall Risk None identified. Assessment: 15:15 Reassessment: Patient appears in no apparent distress at this time. Pt presents to the jr10 ED from home with c/o HTN. Reports hx of HTN, takes amlodipine and benazepril as prescribed, reports spot checking her BP earlier today and it was higher than her usual. Pt reports BP readings at 128/89, 140/90, and 149/100. Pt denies any cp, sob, visual changes, RICHARD, n/v, generalized weakness or fatigue,. Does report tingling to left leg, denies hx of neuropathy. Pt appears in NAD, denies any other complaints at this time. General: Appears in no apparent distress. Behavior is calm, cooperative, appropriate for age. Pain: Denies pain. Neuro: No deficits noted. Cardiovascular: No deficits noted. Denies chest pain, shortness of breath. Respiratory: No deficits noted. Airway is patent Respiratory effort is even, unlabored, Respiratory pattern is regular, symmetrical, Breath sounds are clear bilaterally. GI: No deficits noted. Patient currently denies nausea, vomiting. : No deficits noted. EENT: No deficits noted. Denies blurred vision. Derm: No deficits noted. Musculoskeletal: No deficits noted. Vital Signs: 14:47 BP 151 / 90; Pulse 100; Resp 16 S; Temp 98.0; Pulse Ox 100% on R/A; iw 15:15 BP 140 / 83; Pulse 98; Resp 20; Pulse Ox 99% on R/A; jr10 16:54 BP 120 / 67; Pulse 81; Resp 20; Pulse Ox 96% on R/A; Pain 0/10; jr10 18:15 BP 149 / 96; Pulse 88; Resp 20; Pulse Ox 96% ; Pain 0/10; jr10 ED Course: 14:40 Patient arrived in ED. ag5 14:50 Triage completed. iw 14:51 Arm band placed on. iw 14:52 Estee Marroquin, RN is Primary Nurse. jr10 15:15 No apparent distress. jr10 15:15 Patient has correct armband on for positive identification. Bed in low position. Call jr10 light in reach. Side rails up X2. child monitor on. Pulse ox on. NIBP on. 15:26 Cameron Gallardo MD is Attending Physician. kdr 15:42 No provider procedures requiring assistance completed. Inserted saline lock: 20 gauge jr10 in left antecubital area, using aseptic technique. IV is patent, is intact, with good blood return, Flushed. 15:51 XRAY Chest (1 view) In Process Unspecified. EDMS 18:16 IV discontinued, bleeding controlled, No redness/swelling at site. Pressure dressing jr10 applied. Administered Medications: No medications were administered Outcome: 17:45 Discharge ordered by . kdr 18:16 Discharged to home ambulatory. jr10 18:16 Condition: good 18:16 Discharge instructions given to patient, Instructed on discharge instructions, follow up and referral plans. Demonstrated understanding of instructions, follow-up care. 18:16 Patient left the ED. jr10 Signatures: Dispatcher [employer] EDMS Cameron Gallardo MD MD kdr Lulú Ledezma, RN RN iw Loree Trinh ag5 Estee Marroquin, RN RN jr10 Corrections: (The following items were deleted from the chart) 15:05 14:47 BP 151 / 90; Pulse 100bpm; Resp 16bpm; Spontaneous; Pulse Ox 100% RA; iw iw
--- NOTE | 2019-11-18 17:46 | EDPHYS ---
Physician Documentation [facility] Name: Alyssa Maza Age: 59 yrs Sex: Female : 1960 Arrival Date: 11/18/2019 Time: 14:40 Bed 13 Private MD: ED Physician Cameron Gallardo HPI: 11/17 17:47 This 59 yrs old Black Female presents to ER via Ambulatory with complaints of High kdr Blood Pressure. 17:47 The patient has elevated blood pressure and discovered this at home. Onset: The kdr symptoms/episode began/occurred today. Modifying factors: The symptoms are aggravated by Nothing, The symptoms are alleviated by remaining still, rest. Associated signs and symptoms: Pertinent positives: Pertinent negatives: chest pain, dizziness, dyspnea, headache, lightheadedness, nausea, visual changes. Severity of symptoms: At its worst the blood pressure was mild. The patient has not experienced similar symptoms in the past. The patient has not recently seen a physician. Historical: - Allergies: 14:51 No Known Allergies; iw - Home Meds: 14:51 amlodipine oral once daily [Active]; benazepril oral oral [Active]; iw - PMHx: 14:51 Hypertension; iw - PSHx: 14:51 Carpal Tunnel Repair; Tubal ligation; iw - Immunization history:: Adult Immunizations. - Social history:: Smoking status: Patient denies any tobacco usage or history of. ROS: 17:47 Constitutional: Negative for fever, chills, and weight loss, Eyes: Negative for injury, kdr pain, redness, and discharge, ENT: Negative for injury, pain, and discharge, Neck: Negative for injury, pain, and swelling, Cardiovascular: Negative for chest pain, palpitations, and edema, Respiratory: Negative for shortness of breath, cough, wheezing, and pleuritic chest pain, Abdomen/GI: Negative for abdominal pain, nausea, vomiting, diarrhea, and constipation, Back: Negative for injury and pain, : Negative for injury, bleeding, discharge, and swelling, MS/Extremity: Negative for injury and deformity, Skin: Negative for injury, rash, and discoloration, Neuro: Negative for headache, weakness, numbness, tingling, and seizure activity. Psych: Negative for depression, anxiety, suicide ideation, homicidal ideation, and hallucinations, Allergy/Immunology: Negative for hives, rash, and allergies, Endocrine: Negative for neck swelling, polydipsia, polyuria, polyphagia, and marked weight changes, Hematologic/Lymphatic: Negative for swollen nodes, abnormal bleeding, and unusual bruising. Exam: 17:47 Constitutional: This is a well developed, well nourished patient who is awake, alert, kdr and in no acute distress. Head/Face: Normocephalic, atraumatic. Eyes: Pupils equal round and reactive to light, extra-ocular motions intact. Lids and lashes normal. Conjunctiva and sclera are non-icteric and not injected. Cornea within normal limits. Periorbital areas with no swelling, redness, or edema. Neck: Trachea midline, no thyromegaly or masses palpated, and no cervical lymphadenopathy. Supple, full range of motion without nuchal rigidity, or vertebral point tenderness. No Meningismus. Chest/axilla: Normal chest wall appearance and motion. Nontender with no deformity. No lesions are appreciated. Cardiovascular: Regular rate and rhythm with a normal S1 and S2. No gallops, murmurs, or rubs. Normal PMI, no JVD. No pulse deficits. Respiratory: Lungs have equal breath sounds bilaterally, clear to auscultation and percussion. No rales, rhonchi or wheezes noted. No increased work of breathing, no retractions or nasal flaring. Abdomen/GI: Soft, non-tender, with normal bowel sounds. No distension or tympany. No guarding or rebound. No evidence of tenderness throughout. Back: No spinal tenderness. No costovertebral tenderness. Full range of motion. Skin: Warm, dry with normal turgor. Normal color with no rashes, no lesions, and no evidence of cellulitis. MS/ Extremity: Pulses equal, no cyanosis. Neurovascular intact. Full, normal range of motion. Neuro: Awake and alert, GCS 15, oriented to person, place, time, and situation. Cranial nerves II-XII grossly intact. Motor strength 5/5 in all extremities. Sensory grossly intact. Cerebellar exam normal. Normal gait. Psych: Awake, alert, with orientation to person, place and time. Behavior, mood, and affect are within normal limits. Vital Signs: 14:47 BP 151 / 90; Pulse 100; Resp 16 S; Temp 98.0; Pulse Ox 100% on R/A; iw 15:15 BP 140 / 83; Pulse 98; Resp 20; Pulse Ox 99% on R/A; jr10 16:54 BP 120 / 67; Pulse 81; Resp 20; Pulse Ox 96% on R/A; Pain 0/10; jr10 18:15 BP 149 / 96; Pulse 88; Resp 20; Pulse Ox 96% ; Pain 0/10; jr10 MDM: 17:45 Patient medically screened. kdr 17:47 Data reviewed: vital signs, nurses notes, lab test result(s). Counseling: I had a kdr detailed discussion with the patient and/or guardian regarding: the historical points, exam findings, and any diagnostic results supporting the discharge/admit diagnosis, lab results, the need for outpatient follow up. 11/17 15:38 Order name: Basic Metabolic Panel; Complete Time: 17:45 kdr 11/17 15:38 Order name: CBC with Diff; Complete Time: 17:45 kdr 11/17 15:38 Order name: LFT's; Complete Time: 17:45 kdr 11/17 15:38 Order name: Magnesium; Complete Time: 17:45 kdr 11/17 15:38 Order name: NT PRO-BNP; Complete Time: 17:45 kdr 11/17 15:38 Order name: PT-INR; Complete Time: 17:45 kdr 11/17 15:38 Order name: Troponin (emerg Dept Use Only); Complete Time: 17:45 kdr 11/17 15:38 Order name: XRAY Chest (1 view); Complete Time: 17:45 kdr 11/17 15:38 Order name: EKG; Complete Time: 15:39 kdr 11/17 15:38 Order name: Cardiac monitoring; Complete Time: 15:41 kdr 11/17 15:38 Order name: EKG - Nurse/Tech; Complete Time: 16:22 kdr 11/17 15:38 Order name: IV Saline Lock; Complete Time: 15:41 kdr 11/17 15:38 Order name: Labs collected and sent; Complete Time: 15:41 kdr 11/17 15:38 Order name: O2 Per Protocol; Complete Time: 15:41 kdr 11/17 15:38 Order name: O2 Sat Monitoring; Complete Time: 15:41 kdr Administered Medications: No medications were administered Disposition: 11/18/19 17:45 Discharged to Home. Impression: Hypertensive heart disease. - Condition is Stable. - Discharge Instructions: Hypertension, [id number]. - Medication Reconciliation Form, Thank You Letter form. - Follow up: Private Physician; When: 2 - 3 days; Reason: If symptoms return, Further diagnostic work-up, Recheck today's complaints, Continuance of care, Re-evaluation by your physician. - Problem is an ongoing problem. - Symptoms have improved. Signatures: Dispatcher [employer] EDKS Cameron Gallardo MD MD kdr Lulú Ledezma RN RN iw Estee Marroquin RN RN jr10 Corrections: (The following items were deleted from the chart) 18:16 17:45 11/18/2019 17:45 Discharged to Home. Impression: Hypertensive heart disease. jr10 Condition is Stable. Forms are Medication Reconciliation Form, Thank You Letter, Antibiotic Education, Prescription Opioid Use. Follow up: Private Physician; When: 2 - 3 days; Reason: If symptoms return, Further diagnostic work-up, Recheck today's complaints, Continuance of care, Re-evaluation by your physician. Problem is an ongoing problem. Symptoms have improved. kdr
[2019-11-18 18:22] VITALS: TEMP 98
[2019-11-18 18:25] VITALS: O2SAT 96
[2019-11-18 18:27] VITALS: BP 149/96
== END 2019-11-18 18:16 | disposition home or self-care (01) ==
LOC: ER 14:38
DX: I11.9 Hypertensive heart disease without heart failure (principal)
CPT/HCPCS: 36415; 71045; 80048; 80076; 83735; 83880; 84484; 85025; 85610; 93005; 99284